=== PATIENT | female | born 1965 | race Caucasian/White ===

== ENCOUNTER 2020-11-29 08:08 | Day surgery (SDC) | payer BC ==
[2020-11-24 12:52] VITALS: BMI 31.1
[2020-11-29] MEDS ORDERED: PROPOFOL 20 ML ONE (09:14)
[2020-11-29] MEDS ORDERED: MIDAZOLAM HCL 2 MG/2 ML SINGLE DOSE VIAL ONE (09:14)
[2020-11-29] MEDS ORDERED: KETOROLAC TROMETHAMINE 30 MG/1 ML VIAL ONE ×2 (09:36)
[2020-11-29] MEDS ORDERED: LIDOCAINE HCL 2% (50ML VIAL) NR ONE (09:37)
[2020-11-29 11:01] VITALS: TEMP 97.9
[2020-11-29 11:03] VITALS: PULSE 67
[2020-11-29 11:07] VITALS: BP 100/70
== END 2020-11-29 10:50 | disposition home or self-care (01) ==
LOC: FASU 08:08
PROVIDERS: ATTEND Orthopaedic Surgery Hand Surgery
PROC: 01N54ZZ Release Median Nerve, Percutaneous Endoscopic Approach (ICD-10-PCS; principal; 2020-11-29 09:42)
DX: G56.01 Carpal tunnel syndrome, right upper limb (principal)